=== PATIENT | male | born 1945 | race Caucasian/White ===

== ENCOUNTER → 2018-04-10 08:32 | Outpatient (CLI) | payer OTHER, SELFPAY ==
--- NOTE | 2018-04-10 | DI.US.S_ITS ---
PROCEDURE: US ABD AORTA ANEURYSM SCREEN INDICATIONS: AAA SCREEN, OSTEOPOROSIS, HYPERPARATHYROIDISM TECHNIQUE: Real time scanning was performed of the aorta and iliac arteries, with image documentation. COMPARISON: None. FINDINGS: Aorta: Proximal aortic diameter measures 2.9 cm. Mid-aorta measures 1.9 cm. Distal aortic diameter is 1.9 cm. Iliac arteries: Right common iliac artery measures 0.7 cm. Left common iliac artery measures 0.7 cm. IMPRESSION: No evidence for abdominal aortic aneurysm. The proximal abdominal aorta is ectatic. Recommend followup ultrasound in 5 years. Dictated by: Lacie Noriega M.D. on 04/10/2018 at 11:12 Approved by: Lacie Noriega M.D. on 04/10/2018 at 11:13
== END ==
PROVIDERS: Family Provider Family Medicine; PCP Family Medicine; Visit Provider Family Medicine
DX: Z13.6 Encounter for screening for cardiovascular disorders (principal); E21.3 Hyperparathyroidism, unspecified; M85.851 Other specified disorders of bone density and structure, right thigh; F17.200 Nicotine dependence, unspecified, uncomplicated; I77.811 Abdominal aortic ectasia
CPT/HCPCS: 76706; 77080

== ENCOUNTER 2018-06-03 09:35 | Emergency (ER) | payer OTHER, SELFPAY ==
[2018-06-03 09:37] VITALS: BMI 25.8
--- NOTE | 2018-06-03 09:45 | DI.CT.S_ITS ---
PROCEDURE: CT HEAD/BRAIN WO CON INDICATIONS: syncope TECHNIQUE: Noncontrast 4.5 mm thick angled axial sections acquired from the foramen magnum to the vertex, with coronal and sagittal reformats. For radiation dose reduction, the following was used: automated exposure control, adjustment of mA and/or kV according to patient size. COMPARISON: None. FINDINGS: Image quality: Excellent. CSF spaces: Basal cisterns are patent. No extra-axial fluid collections. The ventricles are symmetric in size and shape. Brain: No intracranial bleeds or masses. There is cerebral volume loss for age, with resultant ventricular and sulcal prominence. There are mild periventricular and deep white matter chronic small vessel ischemic changes. There is intracranial internal carotid artery atherosclerosis. Skull and face: Calvarium and visualized facial bones appear intact, without suspicious lesions. Sinuses: Visualized sinuses and mastoids are clear. IMPRESSION: 1. No CT evidence of acute intracranial process. 2. Mild age-related changes. Dictated by: Nohelia Urias M.D. on 06/03/2018 at 10:32 Approved by: Nohelia Urias M.D. on 06/03/2018 at 10:35
--- NOTE | 2018-06-03 10:02 | ED.SYNCOPE ---
HPI - Syncope General Chief Complaint: Dizziness Stated Complaint: Syncope Time Seen by Provider: 06/03/18 09:44 Source: patient, EMS and RN notes reviewed Mode of arrival: EMS Limitations: no limitations History of Present Illness HPI narrative: Patient is a 72-year-old in male who presents after syncopal episode. It is sitting in a meeting when he suddenly passed out to the floor briefly for about 30 sec. As some mild shaking no postictal period. Does not think that he hit his head as glasses are bent. Not on any blood thinners patient states she was actually at an AA meeting he has been sober for 30 years. He did not eat breakfast this morning but he never eats breakfast. He has a large cup Pepsi 1 caffeine free with him. He denies any chest pain heart palpitations dizziness lightheadedness nausea. MD complaint: loss of consciousness Onset (ago): minute(s) -: second(s) Prodromal symptoms: none Witnessed: yes - by bystander Context: at rest Injuries sustained associated with event: none Related Data Allergies Allergy/AdvReac Type Severity Reaction Status Date / Time Sulfa (Sulfonamide AdvReac Headache Verified 06/03/18 09:53 Antibiotics) Nsaid AdvReac Unknown Uncoded 06/21/17 12:19 Review of Systems Review of Systems ROS Unobtainable: All systems reviewed & are unremarkable except as noted in HPI and below Constitutional Denies chills, Denies fever(s), Denies lethargy and Denies weakness Cardiovascular Reports as per HPI, Denies chest pain, Reports syncope, Denies irregular heart rhythm, Denies lightheadedness, Denies palpitations and Denies orthopnea Gastrointestinal Gastrointestinal: Denies abdominal pain, Denies change in bowel habits, Denies diarrhea, Denies nausea and Denies vomiting Genitourinary Denies hematuria, Denies flank pain, Denies urinary incontinence and Denies urinary urgency Musculoskeletal Denies back pain, Denies muscle weakness, Denies numbness and Denies tingling Integumentary/Breasts Denies pruritus, Denies erythema, Denies rash and Denies wounds Neurologic Reports syncope, Denies numbness, Denies tingling and Denies weakness Endocrine Denies palpitations PFSH Medical History GERD (gastroesophageal reflux disease) (Acute) Social History Smoking Status: Current every day smoker alcohol intake: former substance use type: does not use Social History Smoking Status: Current every day smoker alcohol intake: former substance use type: does not use Exam Initial Vital Signs Initial Vital Signs: Vital Signs Temperature 97.7 F 06/03/18 10:09 Pulse Rate 73 06/03/18 10:09 Respiratory Rate 16 06/03/18 10:09 Blood Pressure 105/64 06/03/18 10:09 Pulse Oximetry 100 06/03/18 10:09 GENERAL: Well-appearing, well-nourished and in no acute distress. HEENT: Head atraumatic,EOMI, pupils reactive, face symmetric, moist mucous membranes CARDIOVASCULAR: Regular rate and rhythm without murmurs, rubs or gallops. RESPIRATORY: Breath sounds equal bilaterally, no wheezes rales or rhonchi. ABDOMEN: Soft, nontender. Normoactive bowel sounds all 4 quadrants. No guarding or rebound. EXTREMITIES: Normal range of motion, no clubbing or edema. Neurovascularly intact NEUROLOGICAL: Alert and oriented x4.Normal gait and speech. Cranial nerves II through XII grossly intact. Good [id number], good [id number], strength equal bilaterally, no dysarthria or aphasia, sensation in tact to soft touch bilaterally, no visual changes, no facial droop SKIN: Warm, dry, no laceration, no petechiae, no rashes or lesions. Course Orders Ordered: ED Orders 06/03/18 09:43 EKG-12 Lead Stat 06/03/18 09:45 CT head/brain wo con Stat 06/03/18 09:55 Complete Blood Count AUTO DIFF Stat Comprehensive Metabolic Panel Stat Troponin & CK Cardiac Panel Stat Discontinued Medications Sodium Chloride (Normal Saline 0.9%) 1,000 mls @ 1,000 mls/hr IV BOLUS ONE Stop: 06/03/18 10:43 Last Infusion: 06/03/18 12:01 Dose: 0 mls/hr Admin: 06/03/18 10:26 Dose: 1,000 mls/hr Vital Signs - 8 hr 06/03/18 10:09 06/03/18 10:53 06/03/18 10:54 Temperature 97.7 F Pulse Rate 73 81 Respiratory Rate 16 17 Blood Pressure 105/64 Blood Pressure [Left Arm] 111/73 Pulse Oximetry 100 97 06/03/18 11:00 06/03/18 11:30 06/03/18 12:01 Temperature Pulse Rate 85 71 Respiratory Rate 13 18 Blood Pressure 122/79 Blood Pressure [Left Arm] 116/72 122/79 Pulse Oximetry 96 100 MDM - Syncope Lab Data Attestation: I reviewed the patient's lab results. Result diagrams: 06/03/18 09:55 06/03/18 09:55 Lab Results 06/03/18 06/03/18 Range/Units 09:55 09:55 WBC 11.0 (4.5-11.0) X10^3/uL RBC 4.59 (4.5-5.9) X10^6/uL Hgb 14.4 (13.5-17.5) g/dL Hct 42.6 (41-53) % MCV 92.8 (80-100) fL MCH 31.4 (26-34) PG MCHC 33.9 (30-36) % RDW 13.8 (11.6-14.8) % Plt Count 250 (150-400) X10^3/uL Neut % (Auto) 68.3 (50-75) % Lymph % (Auto) 22.5 L (25-40) % [place] % (Auto) 6.8 (3-14) % Eos % (Auto) 1.3 L (2-4) % Baso % (Auto) 1.1 (0-2) % Neut # (Auto) 7500 H (6114-5765) /uL Lymph # (Auto) 2500 (8632-0494) /uL [place] # (Auto) 800 (0-900) /uL Eos # (Auto) 100 (0-450) /uL Baso # (Auto) 100 (0-100) /uL Sodium 136 L (137-145) mmol/L Potassium 3.7 (3.4-5.1) mmol/L Chloride 101 (98-107) mmol/L Carbon Dioxide 24 (22-32) mmol/L BUN 18 (9-20) mg/dL Creatinine 0.90 (0.66-1.25) mg/dL Estimated GFR > 60.0 (>60) mL/min BUN/Creatinine Ratio 20.0 (6-22) Glucose 146 H (80-110) mg/dL Calcium 10.0 (8.4-10.2) mg/dL Total Bilirubin 0.5 (0.2-1.3) mg/dL AST 26 (17-59) IU/L ALT 24 (21-72) IU/L Alkaline Phosphatase 81 (38-126) U/L Total Creatine Kinase 54 L (55-170) U/L CK-MB (CK-2) TNP CK-MB (CK-2) Rel Index TNP Troponin I < 0.012 (0.01-0.034) ng/mL Total Protein 6.8 (6.3-8.2) g/dL Albumin 4.3 (3.5-5.0) g/dL Globulin 2.5 (1.7-4.1) g/dL Albumin/Globulin Ratio 1.7 (1.0-2.8) Point of Care Testing Glucose POC [address] scan - head: Radiologist's impression: PROCEDURE: CT HEAD/BRAIN WO CON INDICATIONS: syncope TECHNIQUE: Noncontrast 4.5 mm thick angled axial sections acquired from the foramen magnum to the vertex, with coronal and sagittal reformats. For radiation dose reduction, the following was used: automated exposure control, adjustment of mA and/or kV according to patient size. COMPARISON: None. FINDINGS: Image quality: Excellent. CSF spaces: Basal cisterns are patent. No extra-axial fluid collections. The ventricles are symmetric in size and shape. Brain: No intracranial bleeds or masses. There is cerebral volume loss for age, with resultant ventricular and sulcal prominence. There are mild periventricular and deep white matter chronic small vessel ischemic changes. There is intracranial internal carotid artery atherosclerosis. Skull and face: Calvarium and visualized facial bones appear intact, without suspicious lesions. Sinuses: Visualized sinuses and mastoids are clear. IMPRESSION: 1. No CT evidence of acute intracranial process. 2. Mild age-related changes. Dictated by: Nohelia Urias M.D. on 06/03/2018 at 10:32 ECG Data Attestation: I personally reviewed and interpreted this ECG as follows: Prior ECG tracings: not available for review Interpretation: Sinus rhythm right bundle-branch block noted no ST changes no priors to compare MDM Narrative Medical decision making narrative: The patient overall is feeling much better recommended Holter monitor in outpatient workup for his syncopal episode. He has no focal deficits and feels ready and able to go Discharge Plan Departure Patient Disposition: Home Clinical Impression: Vaso-vagal reaction Discharge Date/Time: 06/03/18 12:02 Interventions: ED Discharge Assessment Last Done: 06/03/18 12:01 Instructions: Fainting Activity Restrictions/Additional Instructions: *You have been diagnosed with fainting episode *What to do: May need a Holter monitor or further workup please speak with her PCP about this. *Continue to take medications as directed *Follow up with your primary care provider in 2-3 days *Return to ER if you should have recurrent episode of passing out, chest pain, heart palpitations, dizziness or any new, worsening or concerning symptoms Referrals: Stephane Corral MD [Primary Care Provider] -
[2018-06-03 10:08] LABS: Add Manual Diff / Slide Review NO; Basophils Absolute Auto 100 /uL (0-100); Basophils Percent Auto 1.1 % (0-2); Eosinophils Absolute Auto 100 /uL (0-450); Eosinophils Percent Auto 1.3 % (2-4); Hematocrit 42.6 % (41-53); Hemoglobin 14.4 g/dL (13.5-17.5); Lymphocytes Absolute Auto 2500 /uL (1100-4500); Lymphocytes Percent Auto 22.5 % (25-40); Mean Corpuscular HGB Conc 33.9 % (30-36); Mean Corpuscular Hemoglobin 31.4 PG (26-34); Mean Corpuscular Volume 92.8 fL (80-100); Monocytes Absolute Auto 800 /uL (0-900); Monocytes Percent Auto 6.8 % (3-14); Neutrophils Absolute Auto 7500 /uL (1500-7000); Neutrophils Percent Auto 68.3 % (50-75); Platelet Count 250 X10^3/uL (150-400); Red Blood Cell Count 4.59 X10^6/uL (4.5-5.9); Red Cell Distribution Width 13.8 % (11.6-14.8)
[2018-06-03 10:09] VITALS: BP 105/64; PULSE 73; RESP 16; TEMP 36.5; O2SAT 100; BMI 25.8
[2018-06-03 10:19] LABS: Alanine Aminotransferase 24 IU/L (21-72); Albumin 4.3 g/dL (3.5-5.0); Albumin Globulin Ratio 1.7 (1.0-2.8); Alkaline Phosphatase 81 U/L (38-126); Aspartate Aminotransferase 26 IU/L (17-59); Bilirubin Total 0.5 mg/dL (0.2-1.3); Blood Urea Nitrogen 18 mg/dL (9-20); Carbon Dioxide 24 mmol/L (22-32); Chloride 101 mmol/L (98-107); Creatine Kinase 54 U/L (55-170); Estimated Glomerular Filt Rate > 60.0 mL/min (>60); Globulin 2.5 g/dL (1.7-4.1); Glucose 146 mg/dL (80-110); HEMOLYSIS < 15 (0-50); Potassium 3.7 mmol/L (3.4-5.1); Sodium 136 mmol/L (137-145); Total Protein 6.8 g/dL (6.3-8.2)
[2018-06-03] MEDS: SODIUM CHLORIDE 0.9% 1,000 ML 1000 ML IV (10:26)
[2018-06-03 10:30] LABS: Troponin I < 0.012 ng/mL (0.01-0.034)
[2018-06-03 10:53] VITALS: PULSE 81; RESP 17; O2SAT 97
[2018-06-03 10:54] VITALS: BP 111/73
[2018-06-03 11:00] VITALS: BP 116/72; PULSE 85; RESP 13; O2SAT 96
[2018-06-03 11:30] VITALS: BP 122/79
[2018-06-03 12:01] VITALS: BP 122/79; PULSE 71; RESP 18; O2SAT 100
== END 2018-06-03 12:02 | disposition home or self-care (01) ==
PROVIDERS: Emergency Provider Emergency Medicine; PCP Family Medicine
DX: R55 Syncope and collapse (principal)
CPT/HCPCS: 36415; 70450; 80053; 82550; 82962; 84484; 85025; 93005; 96360; 96361; 99283; 99285

== ENCOUNTER → 2018-08-24 08:00 | Outpatient (CLI) | payer OTHER, SELFPAY ==
--- NOTE | 2018-08-24 | DI.MRI.S_ITS ---
PROCEDURE: MR HEAD/BRAIN WO/W CON INDICATIONS: SYNCOPE TECHNIQUE: Noncontrast axial T1 spin echo, axial T2 fast spin echo, sagittal and axial FLAIR, coronal T2 fast spin echo, axial gradient echo, axial diffusion and ADC through the brain. After the administration of contrast, axial and coronal T1 spin echo with fat saturation through the brain. COMPARISON: [facility], RG, MRI HEAD W/WO CONTRAST, 06/19/2000, 10:42. [facility], RG, MRI HEAD W/O CONTRAST, 12/05/2001, 10:40. [facility], CT, CT HEAD/BRAIN WO CON, 06/03/2018, 10:06. FINDINGS: Image quality: Excellent. CSF spaces: Basal cisterns are patent. No extra-axial fluid collections. Ventricles are normal in size and shape. Brain: No midline shift. No intracranial bleeds or masses. No abnormal intracranial enhancement. There is cerebral volume loss for age. There is periventricular white matter chronic small vessel ischemic change. The brainstem appears normal. Diffusion-weighted images demonstrate no acute ischemic insults. Within the right basal ganglia, there is again seen a cystic acoustic on which is stable compared to the 2000. This likely represents a remote lacunar infarction. Normal intravascular flow voids are present. Skull and face: Calvarial marrow is normal in signal. Orbits appear normal. Sinuses: Mild mucosal thickening is seen involving the right maxillary sinus. The paranasal sinuses are otherwise unremarkable. No abnormal mastoid air cell fluid can be seen. IMPRESSION: Intracranial study within normal limits for age, with note made of brain parenchymal volume loss and chronic small vessel ischemic change. No masses or abnormal enhancement can be seen. Dictated by: Ritesh Grullon M.D. on 08/24/2018 at 9:04 Approved by: Ritesh Grullon M.D. on 08/24/2018 at 9:08
--- NOTE | 2018-08-24 | DI.ECHO.S_ITS ---
[facility] +---------+ : : [address] : : : [place], [place] : : : : [id number] : : : : Phone: [phone] Echocardiogram Report + + :Name: DEANDRA MATTHEWS Study Date: 08/24/2018 Height: 68 in : :[facility] Exam Location: [facility] Weight: 171 lb : : Gender: Male BSA: 1.9 m2 : :: 1945 Age: 73 yrs BP: 134/72 mmHg: :Reason For Study: SYNCOPE : : Performed By: Aaron Frank : :Referring: DEANDRA FERRARI : + + Interpretation Summary Normal sinus rhythm. Normal LV size, wall thickness, wall motion and LV systolic function. EF is 60-65%. Normal chamber sizes. No significant valvular abnormalities. No prior study available for comparison. Procedure: A two-dimensional transthoracic echocardiogram with color flow and Doppler was performed. The study quality was technically adequate. There is no prior echocardiogram noted for this patient. The patient was in normal sinus rhythm during the exam. Left Ventricle: The left ventricle is normal in size. There is normal left ventricular wall thickness. The ejection fraction is estimated to be 60-65%. There are no focal wall motion abnormalities. Right Ventricle: The right ventricle is normal in size and function. Atria: Both atria are normal in size. The interatrial septum is intact with no evidence for an atrial septal defect. Mitral Valve: The mitral valve is normal in structure and function. There is trace mitral regurgitation. Aortic Valve: The aortic valve is trileaflet. The aortic valve opens well. There is mild aortic regurgitation. Tricuspid Valve: The tricuspid valve is normal in structure and function. There is trace tricuspid regurgitation. The right ventricular systolic pressure is estimated to be at least 27 mmHg based on an estimated right atrial pressure of 3 mm Hg. Pulmonic Valve: The pulmonic valve is not well visualized. There is no pulmonic valvular regurgitation. Great Vessels: The aortic root is normal size. The ascending aorta is at the upper limits of normal in size. The pulmonary artery is normal size. The IVC is of normal diameter and collapses greater than 50% with a sniff. This suggests a low right atrial pressure of 3 mm Hg. Pericardium/ Pleura There is no pericardial effusion. There is no pleural effusion. MMode/2D Measurements & Calculations LVIDd: 4.9 cm LVOT diam: 2.1 cm LVIDs: 3.1 cm Ao root diam: 3.7 cm FS: 36.4 % Aortic Jxn: 3.1 cm EPSS: 0.70 cm asc Aorta Diam: 3.5 cm IVSd: 0.94 cm LVPWd: 0.83 cm LV andrade. diameter/BSA (cm/m^2): 2.6 LV sys. diameter/BSA (cm/m^2): 1.6 LA dimension: 2.6 cm RA long axis: 4.6 cm LA A2 area: 20.1 cm2 RA area: 15.7 cm2 LA A4 area: 13.0 cm2 RA vol: 45.2 ml LA length (vol): 4.5 cm RA : 23.6 ml/m2 LA vol: 48.8 ml IVC diam: 2.0 cm LA vol index: 25.5 ml/m2 Doppler Measurements & Calculations Ao V2 max: 150.2 cm/sec LVOT Max Dalton: 115.8 cm/sec Ao V2 mean: 107.9 cm/sec LV V1 max P.4 mmHg Ao max P.0 mmHg LV V1 VTI: 23.4 cm Ao mean P.0 mmHg TRACY(I,D): 2.4 cm2 Ao V2 VTI: 34.1 cm TRACY(V,D): 2.7 cm2 sev ratio: 0.68 TRACY indexed to BSA (cm^2/m^2): 1.3 AI P1/2t: 666.5 msec AI dec slope: 184.7 cm/sec2 MV E max dalton: 61.8 cm/sec TR max dalton: 242.8 cm/sec MV A max dalton: 86.4 cm/sec TR max P.6 mmHg MV E/A: 0.71 PA V2 max: 62.4 cm/sec Med Peak E' Dalton: 5.3 cm/sec PA V2 mean: 47.5 cm/sec E/E' med: 11.7 PA mean P.96 mmHg Lat Peak E' Dalton: 7.7 cm/sec PA pr(Accel): 11.6 mmHg E/E' lat: 8.0 PA Accel Time: 0.15 sec E/e' average: 9.9 MV dec time: 0.21 sec SV(LVOT): 83.0 ml Electronically signed by: Mare Goff M.D. on Reading Physician:08/25/2018 03:27 PM
== END ==
PROVIDERS: PCP Family Medicine; Visit Provider Family Medicine
DX: R55 Syncope and collapse (principal); I35.1 Nonrheumatic aortic (valve) insufficiency
CPT/HCPCS: 70553; 93306

== ENCOUNTER → 2020-10-26 13:02 | Outpatient (CLI) | payer OTHER, SELFPAY ==
--- NOTE | 2020-10-26 | DI.RAD.S_ITS ---
PROCEDURE: XR HIP W PEL IF DONE LT 2V INDICATIONS: left hip pain TECHNIQUE: AP pelvis with lateral view(s) of the left hip(s). COMPARISON: None. FINDINGS: Bones: No fractures or dislocations. Pelvic ring appears intact. No suspicious bony lesions. Mild joint narrowing with periarticular osteophyte formation. Degenerative disc and facet disease involves the inferior lumbar spine. Soft tissues: The visualized bowel gas pattern is normal. No suspicious soft tissue calcifications. IMPRESSION: Mild symmetric hip joint degeneration. Dictated by: Hayden Mcnally [facility] Interpreted: Malvin Serrano MD on 10/26/2020 at 13:47 Transcribed by: DARRYL on 10/26/2020 at 13:47 Approved by: Malvin Serrano M.D. on 10/26/2020 at 16:37
== END ==
PROVIDERS: PCP Family Medicine; Referring Provider Family Medicine; Visit Provider Family Medicine
DX: M25.552 Pain in left hip (principal); M16.0 Bilateral primary osteoarthritis of hip
CPT/HCPCS: 73502